=== PATIENT | male | born 1975 | race African-American/Black ===

== ENCOUNTER 2016-10-06 19:35 | Emergency (ER) | payer OTHER ==
[~2016-10-06] VITALS: Ht 170.2 cm; Wt 81.7 kg
--- NOTE | ~2016-10-06 | EKG ---
[address] [place] [address] ELECTROCARDIOGRAM REPORT Name: ELMER VASQUEZ [facility]OCK[facility] [id number] Admission: 10/06/16 Attend Phys: Discharge: 10/06/16 Date of : 73 Report #: [id number] THIS REPORT FOR: //name// [facility] ED Test Date: 2016-10-06 Test Time: 20:12:07 Pat Name: ELMER VASQUEZ Department: Room: Gender: Quality Process Lead: [facility] : 1975 Requested By: Michael Otero Order Number: [id number] MD: Skip Mann Measurements Intervals [place] Rate: 75 P: 35 CO: 149 QRS: -11 QRSD: 91 T: 6 QT: 327 QTc: 366 Interpretive Statements Sinus rhythm Probable left atrial enlargement RSR' in V1 or V2, probably normal variant No previous ECG available for comparison Electronically Signed On 10-07-2016 7:49:12 CDT by Skip Mann [email or web address] <ELECTRONICALLY SIGNED> By: Skip Mann MD, [facility] 10/07/16 0749 11 11 Skip Mann MD, FACC /EPI
[2016-10-06 21:42] LABS: ABSOLUTE NEUTROPHILS 1.9 thou/uL (1.4-8.2); BASOPHILS 0.3 % (0.0-2.0); EOSINOPHILS 2.9 % (0.0-3.0); HEMATOCRIT 42.1 % (42.0-52.0); HEMOGLOBIN 13.9 gm/dL (14.0-18.0); LYMPHOCYTES 49.3 % (24.0-44.0); MCH 28.8 pg (26.0-34.0); MCHC 32.9 g/dL (28.0-37.0); MCV 87.5 fL (80.0-100.0); MONOCYTES 9.6 % (1.0-8.0); PLATELET COUNT 246 thou/uL (150-400); POLYS 37.9 % (36.0-66.0); RBC 4.81 mil/uL (4.50-6.00)
[2016-10-06 21:43] LABS: MANUAL DIFF NO
[2016-10-06 21:46] LABS: ANION GAP 7 mmol/L (7-16); BUN 19 mg/dL (7-18); CHLORIDE 103 mmol/L (98-107); CO2 29 mmol/L (21-32); CREATININE 1.3 mg/dL (0.7-1.3); GLUCOSE 109 mg/dL (74-106); POTASSIUM 3.7 mmol/L (3.5-5.1); SODIUM 139 mmol/L (136-145)
[2016-10-06 21:53] LABS: ALBUMIN 3.9 g/dL (3.4-5.0); ALKALINE PHOSPHATASE 76 U/L (46-116); MAGNESIUM 2.1 mg/dL (1.8-2.4); SGOT 27 U/L (15-37); SGPT 34 U/L (30-65); TOTAL BILIRUBIN 0.5 mg/dL (<0.1-1.0); TOTAL PROTEIN 7.6 g/dL (6.4-8.2); TROPONIN-I < 0.04 ng/mL (<0.04-0.07)
[2016-10-06 22:09] VITALS: BP 140/89
== END 2016-10-06 22:10 | disposition home or self-care (01) ==
LOC: ER 19:35
PROVIDERS: Emergency Medicine
DX: R06.02 Shortness of breath (principal)